=== PATIENT | female | born 2005 | race Caucasian/White ===

== ENCOUNTER 2023-04-23 22:11 | Observation (INO) ==
[2023-04-23 23:20] LABS: Adenovirus PCR Not Detected (NotDetected); Bordetella parapertussis PCR Not Detected (NotDetected); Bordetella pertussis PCR Not Detected (NotDetected); Chlamydia pneumoniae PCR Not Detected (NotDetected); Coronavirus 229E PCR Not Detected (NotDetected); Coronavirus CoV-2 (COVID19)PCR Not Detected (NotDetected); Coronavirus HKU1 PCR Not Detected (NotDetected); Coronavirus NL63 PCR Not Detected (NotDetected); Coronavirus OC43PCR Not Detected (NotDetected); Human Metapneumovirus PCR Not Detected (NotDetected); Influenza A PCR Not Detected (NotDetected); Influenza B PCR Not Detected (NotDetected); Mycoplasma pneumoniae PCR Not Detected (NotDetected); Parainfluenza Virus 1 PCR Not Detected (NotDetected); Parainfluenza Virus 2 PCR Not Detected (NotDetected); Parainfluenza Virus 3 PCR Not Detected (NotDetected); Parainfluenza Virus 4 PCR Not Detected (NotDetected); Respiratory Syncytial VirusPCR Not Detected (NotDetected)
[2023-04-23 23:23] LABS: Rhinovirus/Enterovirus PCR DETECTED (NotDetected)
[2023-04-24] MEDS ORDERED: ONDANSETRON INJ 2 MG/ML 2 ML VIAL IV STA (00:30)
[2023-04-24] MEDS ORDERED: KETOROLAC TROMETHAMINE 15 MG/ML VIAL IV STA (00:30)
[2023-04-24] MEDS ORDERED: SODIUM CHLORIDE 0.9% 1,000 ML IV ONE (00:30)
[2023-04-24 00:58] LABS: Basophils # (auto) 0.05 K/uL (0.00-0.20); Basophils % (auto) 0.3 %; Eosinophils # (auto) 0.04 K/uL (0.00-0.50); Eosinophils % (auto) 0.3 %; Hematocrit (blood only) 35.1 % (37.0-47.0); Hemoglobin 11.9 g/dl (12.0-16.0); Immature Granulocytes # (auto) 0.06 K/uL (0.01-0.20); Immature Granulocytes % (auto) 0.4 %; Lymphocytes # (auto) 1.88 K/uL (1.20-3.40); Lymphocytes % (auto) 12.2 %; Mean Corpuscular Hemoglobin 29.9 pg (25.0-34.0); Mean Corpuscular Hgb Conc 33.9 g/dL (32.0-36.0); Mean Corpuscular Volume 88.2 fL (80.0-100.0); Mean Platelet Volume 10.9 fL (9.4-12.4); Monocytes # (auto) 1.32 K/uL (0.11-0.59); Monocytes % (auto) 8.6 %; Neutrophils # (auto) 12.03 K/uL (1.40-6.50); Neutrophils % (auto) 78.2 %; Platelet Count 343 K/uL (130-400); RDW Coefficient of Variation 11.9 % (11.5-14.5); RDW Standard Deviation 38.1 fL (36.4-46.3); Red Blood Count 3.98 M/uL (4.20-5.40); White Blood Count 15.38 K/ul (4.8-10.8)
[2023-04-24 01:16] LABS: Albumin Globulin Ratio 1.1 (0.9-2); Albumin Level 4.3 gm/dl (3.4-5.0); BUN Creatinine Ratio 10.8 (10-20); Bilirubin,Total 0.4 mg/dl (0.2-1.0); Calcium 9.4 mg/dl (8.6-10.3); Creatinine Clr Calc Pharmacy 114.2 ml/min; Est GFR (African American) 148.1 ml/min; Est GFR (Non-African American) 127.8 ml/min; Globulin 3.8 gm/dl (2.5-4.0); Potassium 3.7 mmol/L (3.5-5.1); Total Protein 8.1 gm/dl (6.0-8.3)
[2023-04-24] MEDS ORDERED: OPTIRAY 320 100ml IV ONE (02:10)
[2023-04-24 02:29] LABS: Appearance Urine Cloudy (Clear); Bacteria Urine Automated 4+ (Negative); Bilirubin Urine Negative (Negative); Blood Urine Negative (Negative); Cast Urine Automated 0 /lpf (0-5); Color Urine Yellow; Epithelial Cell Urine Auto >30 /lpf (0-5); Glucose Urine UA Negative (Negative); Ketones Urine 1+ (Negative); Leukocyte Esterase Urine 2+ (Negative); Nitrite Urine Positive (Negative); Protein Urine Negative (Negative); RBC Urine Automated 0-4 /hpf (0-4); Specific Gravity Urine 1.011 (1.000-1.030); Urobilinogen Urine Negative (Negative); WBC Urine Automated >30 /hpf (0-5)
--- NOTE | 2023-04-24 03:05 | CT Scan Report ---
Exam(s): CT ABDOMEN + PELVIS With Contrast IV Amt: 92 ml EXAM: CT Abdomen and Pelvis With Intravenous Contrast CLINICAL HISTORY: Reason for exam: abdominal pain, fever. TECHNIQUE: Axial computed tomography images of the abdomen and pelvis with intravenous contrast. Automated exposure control was utilized for the study. A dose lowering technique was utilized adhering to the principles of ALARA. CONTRAST: Patient received 92 ml of IV contrast COMPARISON: None. FINDINGS: Lung bases: Mild bilateral lower lobe subpleural atelectasis, otherwise lung bases are clear. ABDOMEN: Liver: Unremarkable. No mass. Gallbladder and bile ducts: Unremarkable. No calcified stones. No ductal dilation. Pancreas: Unremarkable. No mass. No ductal dilation. Spleen: Unremarkable. No splenomegaly. Adrenals: Unremarkable. No mass. Kidneys and ureters: Bilateral cortical hypodensities throughout the kidneys compatible with pyelonephritis. No hydronephrosis. Stomach and bowel: Unremarkable. No obstruction. No mucosal thickening. PELVIS: Appendix: Normal appendix. Bladder: Unremarkable. No mass. Reproductive: Anteverted uterus. ABDOMEN and PELVIS: Intraperitoneal space: Mild free fluid in the cul-de-sac, nonspecific. No free air. Bones/joints: No acute fracture. No dislocation. Soft tissues: Unremarkable. Vasculature: Unremarkable. No abdominal aortic aneurysm. Lymph nodes: Unremarkable. No enlarged lymph nodes. IMPRESSION: 1. Bilateral pyelonephritis, clinical correlation recommended. 2. No acute appendicitis or bowel obstruction. Electronically signed by: Cassia Burks MD 04/24/23 03:04 AM
[2023-04-24] MEDS ORDERED: cefTRIAXone SODIUM 1,000 MG in DEXTROSE 5% 50 ML IV SCH (03:30)
--- NOTE | 2023-04-24 03:51 | History & Physical Report ---
Date of Service April 24, 2023 Assessment & Plan (1) Pyelonephritis: Plan: -Patient febrile to 38.2 on admission, WBC 15.38. -U/A cloudy, positive nitrite, positive WBC/LE, 4+ bacteria. -Has had on and off dysuria for a while now, never treated. -Difficult to say if febrile infection from pyelonephritis exacerbated by entero/rhinovirus. -Given Ceftriaxone 1gm x1 in the ED. Continue ceftriaxone 1g daily for UTI complicated, can switch to oral antibiotic once sensitivities come back or patient wanting to leave sooner. -Tylenol 650mg PRN for fever or pain, can alternate with Ketorolac if still febrile. -Will rehydrate patient with NSS at 125ml/hr. -Continue to monitor with AM CBC. (2) Enterovirus infection: Plan: Same as above. Treat with fluid rehydration. 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 -Patient will need new refill upon discharge, told patient to use alternative control (condoms) until she is able to restart the OCPs on the first Monday after her next period starts. -Please reiterate the above to patient before discharge and on discharge instructions. -Told patient [facility] can take over filling script. Plan F/E/N/GI: Regular. DVT Prophylaxis: None needed, patient ambulatory Code status: Full Dispo: Med/surg History of Present Illness Chief Complaint: Lymphadenopathy. Primary Care Provider: [facility] Michelle is a 18 year old female w/ no discernable past medical history coming in to the ED for a week of nausea, vomiting, fevers. Patient states that for the past 2 months she's had swollen lymph nodes at the left neck and axilla but has not had any symptoms associated with that. This past week she developed fevers, nausea, vomiting, and fatigue. She went to [facility] and stated that she came back positive for mononucleosis. She came to the emergency department tonight to get checked out after these symptoms persisted and worsened. She denies any shortness of breath, chest pain, abdominal pain (does have MSK related pain from work out), headaches. She said earlier in the week she wasn't able to eat much due to the nausea and vomiting but now she's doing a little bit better. Patient states that she has had dysuria on and off for a little while now, states that she did not know to go to the doctor for it. When she has gone for physicals in the past she would sometimes have abnormal U/A's. She denies any past medical history. The only medication she was taking was her oral contraceptive pills however she has since run out of them due to her childbirth and infant care teacher not being in the area anymore. She was not aware that [facility] could prescribe her control for her. In the ED patient's WBC was 15.38, hgb 11.9, CMP unremarkable, U/A positive for bacteria, respiratory panel positive for entero/rhinovirus. CT A&P positive for bilateral pyelonephritis. Past Med/Surg History Medical History (Updated 04/24/23 @ 04:31 by Augusto Johnson DO) No pertinent past medical history Social History Smoking Status: Never smoker Preferred Language: Beninese Feels Safe at Home: Yes Review of Systems Review of Systems: As per HPI. Physical Exam Constitutional: WD/WN, vitals as above Eyes: PERRL, conjunctivae normal, anicteric sclerae ENMT: No prominent lymphadenopathy palpated at the left neck, patient not tender to palpation. oropharynx without erythema or swelling, mallampati III Respiratory: normal respiratory effort, lungs clear to auscultation Cardiovascular: RRR, no murmur, no edema Gastrointestinal (Abdomen): normal bowel sounds, soft, nontender, no hepatosplenomegaly Skin: no rashes, warm and dry Psychiatric: A+Ox3, euthymic affect Results & Data Results & Data Vital Signs (Past 12 Hours) Vital Signs Temp Pulse Pulse Resp BP BP Pulse Ox 04/24/23 02:12 89 15 109/68 97 04/23/23 22:16 38.2 C H 105 H 19 132/88 99 O2 Del Method 04/24/23 02:12 04/23/23 22:16 Room Air Supervising Physician Co-Signing Physician Notes Attending addendum: I have physically seen this patient, have supervised the medical residents activities, and agree with the H&P unless as otherwise noted. Assessment and Plan: Bilateral pyelonephritis/urinary tract infection- Follow urine culture and sensitivity Empiric ceftriaxone 1 g IV daily Status post 1 L normal saline in ED continue IV fluid rehydration NSS at 125 mi ls per hour Acetaminophen 650 mg by mouth every 6 hours as needed for mild pain or fever Toradol 15 mg IV every 6 hours as needed for moderate pain Enterovirus infection- Supportive treatment with IV fluids, Tylenol and Toradol Remaining orders and notations as noted Resident Activity Tracking Resident Involvement: Resident Care Provided Care Provided: Adult Hospital Medicine
--- NOTE | 2023-04-24 05:19 | Billing Data ---
Date of Service April 24, 2023 Coding Level of Care Code 18947 INT INP/OBS CARE
[2023-04-24] MEDS: SODIUM CHLORIDE 0.9% 1,000 ML IV SCH ×3 (05:32→20:18)
--- NOTE | 2023-04-24 05:59 | Emergency Department Note ---
ED Provider Note History of Present Illness Chief Complaint: Fever Stated Complaint: VOMIT, FEVER Source: patient Mode of arrival: ambulatory Limitations: no limitations This patient is a 18-year-old female who presents to the emergency department for evaluation of fevers, vomiting and abdominal pain. Patient reports that symptoms have been ongoing for the past week. She reports pain across her upper abdomen and into the back. She has had vomiting for the past several days and has been unable to keep anything down. She denies any cough, chest pain, or shortness of breath. She denies any urinary symptoms. Past Med/Surg History Medical History (Updated 04/24/23 @ 06:00 by Jessi King PA-C) No pertinent past medical history Social History Smoking Status: Never smoker Preferred Language: Cypriot Feels Safe at Home: Yes Physical Exam Vital Signs Vital Signs - 24 hr 04/23/23 22:16 04/24/23 02:12 04/24/23 04:00 Temperature 38.2 C H Temperature Source Temporal Artery Scan Pulse Rate 105 H Pulse Rate [Apical] 89 78 Respiratory Rate 19 15 15 Respiratory Effort / Characteristics Non-Labored Spontaneous Respiratory Depth Normal Blood Pressure 132/88 Blood Pressure [Left Arm] 109/68 94/55 L Blood Pressure Mean 102 Blood Pressure Mean [Left Arm] 81 68 Pulse Oximetry 99 97 98 Oxygen Delivery Method Room Air Sepsis Recent Fever Within 48 Hours No Sepsis New/Unexplained Change in Mental Status N/A Sepsis Action Taken by Nursing No Action Required VITALS: Vitals are noted on the nurse's note and reviewed by myself. GENERAL: This is a 18-year-old female, in no acute distress, well-developed well-nourished. SKIN: The skin was without rashes. EARS: External auditory canals clear, tympanic membranes pearly kincaid without erythema or effusion bilaterally. EYES: Pupils equal round and reactive to light and accommodation. NOSE: Patent, turbinates without inflammation or discharge. MOUTH: Mucous membranes moist. Tonsils are not enlarged. Pharynx without erythema or exudate. NECK: Supple without nuchal rigidity. No lymphadenopathy. HEART: Regular rate and rhythm without murmurs gallops or rubs. LUNGS: Clear to auscultation bilaterally without wheezes, rales or rhonchi. No retractions or accessory muscle use. ABDOMEN: Positive bowel sounds x 4. Soft, tenderness across the upper abdomen. No guarding or rebound tenderness. NEURO: Patient was alert and oriented to person place and time. Course Administered Medications Ceftriaxone Sodium 1,000 mg/ (Dextrose) 60 mls @ 100 mls/hr IV NOW ALEJANDRINA Stop: 04/26/23 03:29 Last Infusion: 04/24/23 05:38 Dose: 0 mls/hr Documented By: Admin: 04/24/23 05:00 Dose: 100 mls/hr Documented By: ALIZA Sodium Chloride (Nss 1000ml) 1,000 mls @ 125 mls/hr IV .Q8H ALEJANDRINA Stop: 04/25/23 04:44 Last Admin: 04/24/23 05:32 Dose: 125 mls/hr Documented By: ALIZA Discontinued Medications Sodium Chloride (Nss 1000ml) 1,000 mls @ 999 mls/hr IV .Q1H1M ONE Stop: 04/24/23 01:30 Last Infusion: 04/24/23 03:02 Dose: 0 mls/hr Documented By: Admin: 04/24/23 01:43 Dose: 999 mls/hr Documented By: ALIZA Ioversol (Optiray 320 100ml) 92 ml IV ONCE ONE Stop: 04/24/23 02:11 Last Admin: 04/24/23 02:06 Dose: 92 ml Documented By: JACINTO Ketorolac Tromethamine (Ketorolac Tromethamine 15 Mg/Ml Vial) 15 mg IV NOW STA Stop: 04/24/23 00:31 Last Admin: 04/24/23 01:40 Dose: 15 mg Documented By: ALIZA Ondansetron HCl (Ondansetron Inj 2 Mg/Ml 2 Ml Vial) 4 mg IV NOW STA Stop: 04/24/23 00:31 Last Admin: 04/24/23 01:40 Dose: 4 mg Documented By: ALIZA Medical Decision Making Differential Diagnosis Viral syndrome, otitis, pharyngitis, pneumonia, influenza, meningitis, urinary tract infection, sepsis, bacteremia, as well as other pathologies. Home Medications was personally reviewed by me Laboratory Data Attestation: I reviewed the patient's lab results. 04/24/23 00:44 04/24/23 00:44 Lab Results 04/23/23 04/24/23 04/24/23 Range/Units 22:11 00:44 00:44 WBC 15.38 H (4.8-10.8) K/ul RBC 3.98 L (4.20-5.40) M/uL Hgb 11.9 L (12.0-16.0) g/dl Hct 35.1 L (37.0-47.0) % MCV 88.2 (80.0-100.0) fL MCH 29.9 (25.0-34.0) pg MCHC 33.9 (32.0-36.0) g/dL RDW Std Deviation 38.1 (36.4-46.3) fL RDW Coeff of Caio 11.9 (11.5-14.5) % Plt Count 343 (130-400) K/uL MPV 10.9 (9.4-12.4) fL Immature Gran % (Auto) 0.4 % Neut % (Auto) 78.2 % Lymph % (Auto) 12.2 % Price % (Auto) 8.6 % Eos % (Auto) 0.3 % Baso % (Auto) 0.3 % Neut # (Auto) 12.03 H (1.40-6.50) K/uL Lymph # (Auto) 1.88 (1.20-3.40) K/uL Price # (Auto) 1.32 H (0.11-0.59) K/uL Eos # (Auto) 0.04 (0.00-0.50) K/uL Baso # (Auto) 0.05 (0.00-0.20) K/uL Immature Gran # (Auto) 0.06 (0.01-0.20) K/uL Sodium 135 L (136-145) mmol/L Potassium 3.7 (3.5-5.1) mmol/L Chloride 100 (98-107) mmol/L Carbon Dioxide 26 (21-32) mmol/L Anion Gap 9 (3-11) BUN 7 (6-23) mg/dl Creatinine 0.65 (0.6-1.2) mg/dl Est Cr Clr Drug Dosing 114.2 ml/min Est GFR ( Amer) 148.1 ml/min Est GFR (Non-Af Amer) 127.8 ml/min BUN/Creatinine Ratio 10.8 (10-20) Glucose 93 (70-99(Fasting)) mg/dl Lactate (0.4-2.0) mmol/L Calcium 9.4 (8.6-10.3) mg/dl Total Bilirubin 0.4 (0.2-1.0) mg/dl AST 12 L (13-39) U/L ALT 6 L (7-52) U/L Alkaline Phosphatase 73 (34-104) U/L Total Protein 8.1 (6.0-8.3) gm/dl Albumin 4.3 (3.4-5.0) gm/dl Globulin 3.8 (2.5-4.0) gm/dl Albumin/Globulin Ratio 1.1 (0.9-2) Lipase 12 (11-82) U/L Procalcitonin (0-0.5) ng/ml Urine Color Urine Appearance (Clear) Urine pH (4.5-7.5) Ur Specific Bartlett (1.000-1.030) Urine Protein (Negative) Urine Glucose (UA) (Negative) Urine Ketones (Negative) Urine Blood (Negative) Urine Nitrite (Negative) Urine Bilirubin (Negative) Urine Urobilinogen (Negative) Ur Leukocyte Esterase (Negative) Urine WBC (Auto) (0-5) /hpf Urine RBC (Auto) (0-4) /hpf U Hyaline Cast (Auto) (0-5) /lpf U Epithel Cells (Auto) (0-5) /lpf Urine Bacteria (Auto) (Negative) Adenovirus (PCR) Not Detected (NotDetected) B. pertussis DNA (PCR) Not Detected (NotDetected) B.parapertussis DNA PCR Not Detected (NotDetected) C. pneumoniae DNA (PCR) Not Detected (NotDetected) Coronavirus OC43 (PCR) Not Detected (NotDetected) Coronavirus HKU1 (PCR) Not Detected (NotDetected) Coronavirus 229E (PCR) Not Detected (NotDetected) SARS-CoV-2 (PCR) Not Detected (NotDetected) Coronavirus NL63 (PCR) Not Detected (NotDetected) Human Metapneumovir PCR Not Detected (NotDetected) Influenza Type A (PCR) Not Detected (NotDetected) Influenza Type B (PCR) Not Detected (NotDetected) M. pneumoniae (PCR) Not Detected (NotDetected) Parainfluenza 1 (PCR) Not Detected (NotDetected) Parainfluenza 2 (PCR) Not Detected (NotDetected) Parainfluenza 3 (PCR) Not Detected (NotDetected) Parainfluenza 4 (PCR) Not Detected (NotDetected) RSV (PCR) Not Detected (NotDetected) Entero/Rhino (PCR) DETECTED A* (NotDetected) 04/24/23 04/24/23 04/24/23 Range/Units 02:18 03:19 03:20 WBC (4.8-10.8) K/ul RBC (4.20-5.40) M/uL Hgb (12.0-16.0) g/dl Hct (37.0-47.0) % MCV (80.0-100.0) fL MCH (25.0-34.0) pg MCHC (32.0-36.0) g/dL RDW Std Deviation (36.4-46.3) fL RDW Coeff of Caio (11.5-14.5) % Plt Count (130-400) K/uL MPV (9.4-12.4) fL Immature Gran % (Auto) % Neut % (Auto) % Lymph % (Auto) % Price % (Auto) % Eos % (Auto) % Baso % (Auto) % Neut # (Auto) (1.40-6.50) K/uL Lymph # (Auto) (1.20-3.40) K/uL Price # (Auto) (0.11-0.59) K/uL Eos # (Auto) (0.00-0.50) K/uL Baso # (Auto) (0.00-0.20) K/uL Immature Gran # (Auto) (0.01-0.20) K/uL Sodium (136-145) mmol/L Potassium (3.5-5.1) mmol/L Chloride (98-107) mmol/L Carbon Dioxide (21-32) mmol/L Anion Gap (3-11) BUN (6-23) mg/dl Creatinine (0.6-1.2) mg/dl Est Cr Clr Drug Dosing ml/min Est GFR ( Amer) ml/min Est GFR (Non-Af Amer) ml/min BUN/Creatinine Ratio (10-20) Glucose (70-99(Fasting)) mg/dl Lactate 0.6 (0.4-2.0) mmol/L Calcium (8.6-10.3) mg/dl Total Bilirubin (0.2-1.0) mg/dl AST (13-39) U/L ALT (7-52) U/L Alkaline Phosphatase (34-104) U/L Total Protein (6.0-8.3) gm/dl Albumin (3.4-5.0) gm/dl Globulin (2.5-4.0) gm/dl Albumin/Globulin Ratio (0.9-2) Lipase (11-82) U/L Procalcitonin < 0.05 (0-0.5) ng/ml Urine Color Yellow Urine Appearance Cloudy A (Clear) Urine pH 7.0 (4.5-7.5) Ur Specific Bartlett 1.011 (1.000-1.030) Urine Protein Negative (Negative) Urine Glucose (UA) Negative (Negative) Urine Ketones 1+ H (Negative) Urine Blood Negative (Negative) Urine Nitrite Positive A (Negative) Urine Bilirubin Negative (Negative) Urine Urobilinogen Negative (Negative) Ur Leukocyte Esterase 2+ H (Negative) Urine WBC (Auto) >30 H (0-5) /hpf Urine RBC (Auto) 0-4 (0-4) /hpf U Hyaline Cast (Auto) 0 (0-5) /lpf U Epithel Cells (Auto) >30 H (0-5) /lpf Urine Bacteria (Auto) 4+ H (Negative) Adenovirus (PCR) (NotDetected) B. pertussis DNA (PCR) (NotDetected) B.parapertussis DNA PCR (NotDetected) C. pneumoniae DNA (PCR) (NotDetected) Coronavirus OC43 (PCR) (NotDetected) Coronavirus HKU1 (PCR) (NotDetected) Coronavirus 229E (PCR) (NotDetected) SARS-CoV-2 (PCR) (NotDetected) Coronavirus NL63 (PCR) (NotDetected) Human Metapneumovir PCR (NotDetected) Influenza Type A (PCR) (NotDetected) Influenza Type B (PCR) (NotDetected) M. pneumoniae (PCR) (NotDetected) Parainfluenza 1 (PCR) (NotDetected) Parainfluenza 2 (PCR) (NotDetected) Parainfluenza 3 (PCR) (NotDetected) Parainfluenza 4 (PCR) (NotDetected) RSV (PCR) (NotDetected) Entero/Rhino (PCR) (NotDetected) Imaging Data Attestation: I personally reviewed and interpreted this imaging study as follows: Radiologist's Impression: Abdomen/Pelvis CT 04/24/23 00:32 Exam(s): CT ABDOMEN + PELVIS With Contrast IV Amt: 92 ml EXAM: CT Abdomen and Pelvis With Intravenous Contrast CLINICAL HISTORY: Reason for exam: abdominal pain, fever. TECHNIQUE: Axial computed tomography images of the abdomen and pelvis with intravenous contrast. Automated exposure control was utilized for the study. A dose lowering technique was utilized adhering to the principles of ALARA. CONTRAST: Patient received 92 ml of IV contrast COMPARISON: None. FINDINGS: Lung bases: Mild bilateral lower lobe subpleural atelectasis, otherwise lung bases are clear. ABDOMEN: Liver: Unremarkable. No mass. Gallbladder and bile ducts: Unremarkable. No calcified stones. No ductal dilation. Pancreas: Unremarkable. No mass. No ductal dilation. Spleen: Unremarkable. No splenomegaly. Adrenals: Unremarkable. No mass. Kidneys and ureters: Bilateral cortical hypodensities throughout the kidneys compatible with pyelonephritis. No hydronephrosis. Stomach and bowel: Unremarkable. No obstruction. No mucosal thickening. PELVIS: Appendix: Normal appendix. Bladder: Unremarkable. No mass. Reproductive: Anteverted uterus. ABDOMEN and PELVIS: Intraperitoneal space: Mild free fluid in the cul-de-sac, nonspecific. No free air. Bones/joints: No acute fracture. No dislocation. Soft tissues: Unremarkable. Vasculature: Unremarkable. No abdominal aortic aneurysm. Lymph nodes: Unremarkable. No enlarged lymph nodes. IMPRESSION: 1. Bilateral pyelonephritis, clinical correlation recommended. 2. No acute appendicitis or bowel obstruction. Electronically signed by: Cassia Burks MD 04/24/23 03:04 AM [facility] Narrative The patient is a 18-year-old female who presents today complaining of abdominal pain, vomiting and fever. Respiratory bio fire was performed prior to my evaluation of the patient and was positive for rhinovirus/enterovirus. However, I do not feel that this fully explains the patient's symptoms therefore further work-up was performed. Labs revealed a leukocytosis of 15,000. A CT was performed and reviewed by radiology and shows bilateral pyelonephritis. Urinalysis is suggestive of infection. Patient was given IV Rocephin. She was treated with IV fluids, Zofran, Toradol for her symptoms. Due to persistent vomiting as well as bilateral pyelonephritis, I do feel patient requires inpatient care. Case was discussed with the [facility] hospitalist service, who agreed to evaluate the patient for further care. Impression Pyelonephritis, Enterovirus infection Discharge Plan Visit Data Chief Complaint: Fever Stated Complaint: VOMIT, FEVER ED Provider: Alex Gonzalez ED Midlevel Provider: Jessi King Discharge Problem: Pyelonephritis, Enterovirus infection Forms Stand Alone Forms: My [facility] Referrals Referrals: [place],[facility] [Primary Care Provider] -
--- NOTE | 2023-04-24 07:50 | Hospitalist Progress Note ---
Date of Service April 24, 2023 Assessment & Plan (1) Pyelonephritis: Plan: -Patient febrile to 38.2 C on admission, WBC 15.38. -U/A cloudy, positive nitrite, positive WBC/LE, 4+ bacteria. -Possible febrile infection from pyelonephritis exacerbated by entero/rhin ovirus. -Given Ceftriaxone 1gm x1 in the ED. Continue ceftriaxone 1g daily for UTI complicated, can switch to oral antibiotic once sensitivities come back or patient wanting to leave sooner. -Tylenol 650mg PRN for fever or pain, can alternate with Ketorolac if still febrile. -continue NSS at 125ml/hr. -Continue to monitor with AM CBC. (2) Enterovirus infection: Plan: Same as above. Treat with fluid rehydration. 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 -Patient will need new refill upon discharge, told patient to use alternative control (condoms) until she is able to restart the OCPs on the first Monday after her next period starts. -Please reiterate the above to patient before discharge and on discharge instructions. -Told patient [facility] can take over filling script. Plan F/E/N/GI: Regular. DVT Prophylaxis: ambulatory Code status: Full Dispo: Med/surg Admission and Anticipated Discharge Date Admission Date: April 24, 2023 Supervising Physician Co-Signing Physician Notes I personally examined the patient and verified medel points of history and exam, discussed case, and agree with decision making and plan documented by Dr. Perera. Bilateral pyelonephritis, currently treated on ceftriaxone, awaiting blood and urine cultures, will transition to p.o. antibiotics when able with sensitivities. Patient with improvement of back pain, vital signs stable, remains on gentle fluids, encouraged PO. Subjective Patient seen at bedside, calm comfortable cooperative. States she had flu like symptoms for the past week, slightly improved today. Does have diffuse abd tenderness attributed to ab workout 3 days ago. Denies coughing or sneezing, droplet protection placed for incidental rhinovirus. Patient denies swollen lymph nodes on neck or left axilla, that was from last year. Physical Exam Constitutional: WD/WN, vitals as above Eyes: PERRL, conjunctivae normal, anicteric sclerae ENMT: external ear and nose normal, oropharynx normal Neck: trachea midline, no thyromegaly Respiratory: normal respiratory effort, lungs clear to auscultation some pain with inspiration due to abd pain Cardiovascular: RRR, no murmur, no edema Gastrointestinal (Abdomen): Inspection/Auscultation: abdomen normal to inspection Percussion/Palpation: + abdomen tender (diffuse) and abdomen soft Skin: no rashes, warm and dry Results & Data Results & Data Vital Signs (Past 12 Hours) Vital Signs Temp Pulse Pulse Resp BP BP Pulse Ox 04/24/23 07:00 37.3 C 78 16 96/60 L 100 04/24/23 06:00 76 15 91/60 L 97 04/24/23 04:00 78 15 94/55 L 98 04/24/23 02:12 89 15 109/68 97 04/23/23 22:16 38.2 C H 105 H 19 132/88 99 O2 Del Method 04/24/23 07:00 Room Air 04/24/23 06:00 04/24/23 04:00 04/24/23 02:12 04/23/23 22:16 Room Air Resident Activity Tracking Resident Involvement: Resident Care Provided Care Provided: Adult Hospital Medicine
[2023-04-24] MEDS ORDERED: ONDANSETRON INJ 2 MG/ML 2 ML VIAL IV PRN (07:53)
[2023-04-24] MEDS: ACETAMINOPHEN 325 MG TAB PO PRN ×2 (13:17→20:18)
[2023-04-25] MEDS ORDERED: cefTRIAXone SODIUM 1,000 MG in DEXTROSE 5% 50 ML IV SCH (05:00)
[2023-04-25 06:14] LABS: Hematocrit (blood only) 29.9 % (37.0-47.0); Hemoglobin 9.9 g/dl (12.0-16.0); Mean Corpuscular Hemoglobin 29.6 pg (25.0-34.0); Mean Corpuscular Hgb Conc 33.1 g/dL (32.0-36.0); Mean Corpuscular Volume 89.5 fL (80.0-100.0); Mean Platelet Volume 11.7 fL (9.4-12.4); Platelet Count 310 K/uL (130-400); RDW Standard Deviation 39.1 fL (36.4-46.3); Red Blood Count 3.34 M/uL (4.20-5.40); White Blood Count 10.31 K/ul (4.8-10.8)
[2023-04-25 06:20] LABS: Anion Gap 6 (3-11); BUN Creatinine Ratio 7.5 (10-20); Blood Urea Nitrogen 4 mg/dl (6-23); Calcium 8.4 mg/dl (8.6-10.3); Carbon Dioxide 26 mmol/L (21-32); Chloride 106 mmol/L (98-107); Creatinine Clr Calc Pharmacy 140.1 ml/min; Est GFR (African American) > 150.0 ml/min; Est GFR (Non-African American) 136.7 ml/min; Glucose 96 mg/dl (70-99(Fasting)); Potassium 3.6 mmol/L (3.5-5.1); Sodium 138 mmol/L (136-145)
--- NOTE | 2023-04-25 07:58 | Discharge Summary ---
Date of Service April 25, 2023 Admission HPI Per Admitting Provider Michelle is a 18 year old female w/ no discernable past medical history coming in to the ED for a week of nausea, vomiting, fevers. Patient states that for the past 2 months she's had swollen lymph nodes at the left neck and axilla but has not had any symptoms associated with that. This past week she developed fevers, nausea, vomiting, and fatigue. She went to [facility] and stated that she came back positive for mononucleosis. She came to the emergency department tonight to get checked out after these symptoms persisted and worsened. She denies any shortness of breath, chest pain, abdominal pain (does have MSK related pain from work out), headaches. She said earlier in the week she wasn't able to eat much due to the nausea and vomiting but now she's doing a little bit better. Patient states that she has had dysuria on and off for a little while now, states that she did not know to go to the doctor for it. When she has gone for physicals in the past she would sometimes have abnormal U/A's. She denies any past medical history. 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 She was not aware that [facility] could prescribe her control for her. In the ED patient's WBC was 15.38, hgb 11.9, CMP unremarkable, U/A positive for bacteria, respiratory panel positive for entero/rhinovirus. CT A&P positive for bilateral pyelonephritis. Admission Exam Per Admitting Provider Constitutional: WD/WN, vitals as above Eyes: PERRL, conjunctivae normal, anicteric sclerae ENMT: No prominent lymphadenopathy palpated at the left neck, patient not tender to palpation. oropharynx without erythema or swelling, mallampati III Respiratory: normal respiratory effort, lungs clear to auscultation Cardiovascular: RRR, no murmur, no edema Gastrointestinal (Abdomen): normal bowel sounds, soft, nontender, no hepatospl enomegaly Skin: no rashes, warm and dry Psychiatric: A+Ox3, euthymic affect Principal Diagnosis Pyelonephritis Discharge Exam Constitutional WD/WN, vitals as above Eyes PERRL, conjunctivae normal, anicteric sclerae ENMT external ear and nose normal, oropharynx normal Neck trachea midline, no thyromegaly Respiratory normal respiratory effort, lungs clear to auscultation Cardiovascular RRR, no murmur, no edema Gastrointestinal (Abdomen) Inspection/Auscultation: abdomen normal to inspection Percussion/Palpation: + abdomen tender (mild, diffuse) and abdomen soft Skin no rashes, warm and dry Discharge Data Allergies Allergy/AdvReac Type Severity Reaction Status Date / Time No Known Allergies Allergy Unverified 04/24/23 07:40 Consultations 04/24/23 03:41 ED Decision to Admit Stat Ordered Studies 04/24/23 00:32 CT abd pelvis IV con only Stat Hospital Course (1) Pyelonephritis: -Patient febrile to 38.2 C on admission, WBC 15.38, now downtrending -U/A cloudy, positive nitrite, positive WBC/LE, 4+ bacteria. -Possible febrile infection from pyelonephritis exacerbated by entero/rhinovirus. -recieved IVF -patient started on ceftriaxone, will discharge on Cefdinir 300mg BID for total 7 days (will send 5 day course) -Tylenol 650mg PRN for fever or pain -follow up with PCP after discharge (2) Enterovirus infection: Same as above. Treat with fluid rehydration. (3) control counseling: -Patient with chronic oral contraceptive use (5 years) -Ran out recently due to nanosystems engineer out of area. -Patient will need new refill upon discharge, told patient to use alternative control (condoms) until she is able to restart the OCPs on the first Sund ay after her next period starts. -Told patient [facility] can take over filling script. Total Time Total Time Spent Total Time Spent (In Minutes): see attending attestation Discharge Plan Discharge Items Patient Disposition: Home - Self-Care Reason For Visit: FEBRILE PYELONEPHRITIS Discharge Diagnosis: Pyelonephritis Activity: Resume your previous activity Non-emergency contact: Primary Care Provider Call non-emergency contact if: you have any medication questions, your symptoms worsen, your pain is worsening and you have a fever Follow-up/Referrals: [facility] [Primary Care Provider] - Jammie Perera DO [Resident] - 05/08/23 10:25 am ( hospital f/u) Diet: Regular Addtl Attending Provider Instructions: You were admitted to the hospital for Pyelonephritis, which is a kidney infection. You were treated with antibiotics, and your symptoms improved. Upon discharge, please complete your antibiotic course and follow up with your PCP. Please continue with routine condom usage during sexual activity until you can obtain refills for your oral contraceptives. A discharge summary will be sent to your primary care physician to ensure continuity of care. Please bring this discharge summary with you to your next office appointment so that your provider can review it at that time. Follow-up appointments: Make a follow-up appointment with your PCP within the next week. It is very important that you follow up with them shortly after discharge from the hospital. Keep all your follow-up appointments as already scheduled. If you cannot make an appointment, notify your provider. Medications: Your medication list has been reviewed and reconciled upon discharge to ensure accuracy and continuity of care. An updated list of all your medications is included with your hospital discharge paperwork. Please review this list closely, and make note of any changes. * We sent a new medication called Cefdinir to your pharmacy. Take Cefdinir 300mg one tablet twice a day for 5 days starting on 04/26 Take your medications as instructed; do not skip a dose of your medicines. Make sure all of your doctors know every medicine you are taking (including [id number]-kea-[id number] medicines, vitamins, and supplements). Call your primary care provider before taking any new medicines (including [id number] medicines, vitamins, and supplements), because some of these may interact with your current medications, or may make your symptoms worse. Tell your primary care provider if you cannot afford your medications. CONTACT YOUR PRIMARY CARE PROVIDER if you experience any of the following: fever, chills Nausea, vomiting, urinary discomfort Difficulty following your treatment plan, or difficulty taking medications CALL 911 OR GO TO THE EMERGENCY DEPARTMENT if you experience any of the following: Sudden, severe abdominal pain or nausea/vomiting Severe chest pain, or chest pain that radiates (moves) to your jaw or arm Sudden, severe shortness of breath or difficulty breathing Thank you for allowing us to participate in your care. Pending Studies at Discharge: Yes Studies:: Urine culture sensitivities Stand-Alone Forms: [facility], Smoking Cessation Medications and DC Order Prescriptions: New cefdinir 300 mg capsule 300 mg PO BID 5 Days Qty: 10 0RF Discharge Orders: Discharge Order (Routine); Ordered 04/25/23 Ordered By: Jammie Perera Admission Data Admit Date/Time: 04/24/23 04:14 Attending Provider: Amy Lau Admit Provider: Augusto Johnson Primary Care Provider: [facility] Other Providers: Chris Lewis Other Interventions: Discharge Summary Assessment (RN) Last Done: 04/25/23 10:18 Supervising Physician Co-Signing Physician Notes I personally examined the patient and verified medel points of history and exam, discussed case, and agree with decision making and plan documented by Dr. Perera. Improvement of symptoms. Patient appears comfortable, lungs clear b/l to auscultation, regular rate and rhythm, no acute distress, no CVA tenderness. Reviewed the importance of taking antibiotics as directed and completing the course. Patient will follow-up in office, discussed contraceptive methods at length as well. Resident Activity Tracking Resident Involvement: Resident Care Provided Care Provided: Adult Hospital Medicine
[2023-04-25] MEDS ORDERED: POLYETHYLENE (MIRALAX) 17 GM PACK PO ONE (11:51)
[2023-04-25] MEDS ORDERED: CEFDINIR 300 MG CAP PO ONE (12:00)
== END 2023-04-25 14:08 | disposition home or self-care (01) ==
LOC: EDINP 22:11 → ED 22:11 → SUATTDRO 04-24 04:14 → 3E 04-24 07:40